=== PATIENT | male | born 1960 | race Caucasian/White ===

== ENCOUNTER 2017-06-10 19:31 | Emergency (ER) | payer OTHER ==
[~2017-06-10] VITALS: Ht 172.7 cm; Wt 70.8 kg
[2017-06-10 19:56] VITALS: Ht 172.7 cm; Wt 70.8 kg
[2017-06-11 03:16] VITALS: BP 132/93
== END 2017-06-11 03:16 | disposition home or self-care (01) ==
LOC: ED 19:31
DX: S01.431A Puncture wound without foreign body of right cheek and temporomandibular area, initial encounter (principal); F10.239 Alcohol dependence with withdrawal, unspecified; X58.XXXA Exposure to other specified factors, initial encounter; Y93.89 Activity, other specified; Y99.8 Other external cause status; Y92.89 Other specified places as the place of occurrence of the external cause
CPT/HCPCS: J2060

== ENCOUNTER 2017-06-11 11:10 | Inpatient (IN) | payer OTHER ==
[~2017-06-11] VITALS: Ht 172.7 cm; Wt 71.3 kg
[2017-06-11 07:30] VITALS: BP 140/91
[2017-06-11 11:23] VITALS: Ht 172.7 cm; Wt 71.3 kg
[2017-06-11 12:04] LABS: BASOPHIL % 0.3 % (0-2); PLATELET COUNT 151 x10^3mcL (130-400)
[2017-06-11 12:05] LABS: RED CELL DISTRIBUTION WIDTH 16.4 % (11.5-14.5)
[2017-06-11 12:18] LABS: CALCIUM 9.5 mg/dL (8.5-10.1); CARBON DIOXIDE 21.9 mmol/L (21-32); CHLORIDE SERUM 93 mmol/L (98-107); CREATININE SERUM 0.9 mg/dL (0.7-1.3); GFR1 > 60 mL/min; GLUCOSE SERUM 136 mg/dL (74-106); POTASSIUM SERUM 3.6 mmol/L (3.5-5.1); SODIUM SERUM 130 mmol/L (136-145)
[2017-06-11 12:22] LABS: ALBUMIN 4.2 g/dL (3.4-5.0); ALKALINE PHOSPHATASE 87 U/L (46-116); ALT/SGPT 74 U/L (16-63); AST/SGOT 94 U/L (15-37); BILIRUBIN TOTAL 2.14 mg/dL (0.20-1.00)
[2017-06-11 12:23] LABS: TOTAL PROTEIN, SERUM 8.8 g/dL (6.4-8.2)
[2017-06-11 16:04] VITALS: BP 172/116
[2017-06-11 16:20] LABS: MAGNESIUM 1.8 mg/dL (1.8-2.4); PHOSPHOROUS 3.1 mg/dL (2.5-4.9)
[2017-06-11 16:22] LABS: CHOLESTEROL/HDL RATIO 3.3
[2017-06-11 16:43] LABS: FREE T4 1.02 ng/dL (0.76-1.46); FREE THYROXINE INDEX 2.8 ug/dL (1.4-4.5); T4(THYROXINE) 7.9 ug/dL (4.7-13.3)
[2017-06-11 17:05] LABS: T3 TOTAL 1.73 ng/mL
[2017-06-11 17:10] VITALS: BP 182/119
[2017-06-11 17:30] VITALS: BP 140/91
[2017-06-11 19:46] LABS: microscopic required? NO
[2017-06-11 20:00] LABS: UA SPECIFIC GRAVITY 1.015 (1.005-1.035); urine erythrocyte NEGATIVE (NEGATIVE)
[2017-06-11 20:20] LABS: AMPHETAMINE QUAL UR NONE DETECTED (NEG <=1000)
[2017-06-11 22:13] VITALS: BP 169/109
[2017-06-12 06:48] VITALS: BP 145/101
[2017-06-12 07:39] LABS: CALCIUM 9.5 mg/dL (8.5-10.1); CARBON DIOXIDE 17.4 mmol/L (21-32); CHLORIDE SERUM 97 mmol/L (98-107); CREATININE SERUM 0.9 mg/dL (0.7-1.3); GFR1 > 60 mL/min; GLUCOSE SERUM 114 mg/dL (74-106); SODIUM SERUM 135 mmol/L (136-145)
[2017-06-12 07:46] LABS: BASOPHIL % 0.3 % (0-2); PLATELET COUNT 179 x10^3mcL (130-400)
[2017-06-12 07:47] LABS: RED CELL DISTRIBUTION WIDTH 16.3 % (11.5-14.5)
[2017-06-12 08:00] LABS: IRON 131 ug/dL (65-170)
[2017-06-12 08:04] LABS: TOTAL IRON BINDING CAPACITY 460 ug/dL (250-450)
[2017-06-12 08:43] VITALS: BP 117/72
[2017-06-12 09:10] LABS: RED BLOOD CELLS 4.71 M/mm3 (4.52-5.90)
[2017-06-12 14:10] VITALS: BP 90/60
[2017-06-12 17:16] VITALS: BP 115/78
[2017-06-12 21:00] VITALS: BP 114/80
[2017-06-13 06:47] VITALS: BP 119/86
[2017-06-13 07:35] LABS: BASOPHIL % 0.5 % (0-2); PLATELET COUNT 143 x10^3mcL (130-400)
[2017-06-13 07:37] LABS: RED CELL DISTRIBUTION WIDTH 16.5 % (11.5-14.5)
[2017-06-13 08:39] LABS: CALCIUM 8.4 mg/dL (8.5-10.1); CARBON DIOXIDE 23.3 mmol/L (21-32); CHLORIDE SERUM 101 mmol/L (98-107); CREATININE SERUM 0.9 mg/dL (0.7-1.3); GFR1 > 60 mL/min; GLUCOSE SERUM 94 mg/dL (74-106); SODIUM SERUM 137 mmol/L (136-145)
[2017-06-13 09:20] VITALS: BP 141/99
[2017-06-13 12:22] VITALS: BP 118/82
[2017-06-13 18:25] VITALS: BP 103/77
[2017-06-13 21:15] VITALS: BP 108/84
[2017-06-14 05:33] VITALS: BP 145/98
[2017-06-14 07:47] LABS: CALCIUM 8.5 mg/dL (8.5-10.1); CARBON DIOXIDE 20.8 mmol/L (21-32); CHLORIDE SERUM 101 mmol/L (98-107); CREATININE SERUM 0.7 mg/dL (0.7-1.3); GFR1 > 60 mL/min; GLUCOSE SERUM 90 mg/dL (74-106); SODIUM SERUM 135 mmol/L (136-145)
[2017-06-14 08:00] LABS: POTASSIUM SERUM 2.9 mmol/L (3.5-5.1)
[2017-06-14 08:44] LABS: BASOPHIL % 0.5 % (0-2); PLATELET COUNT 143 x10^3mcL (130-400)
[2017-06-14 08:45] LABS: RED CELL DISTRIBUTION WIDTH 16.6 % (11.5-14.5)
[2017-06-14 09:40] VITALS: BP 87/68
[2017-06-14 14:24] VITALS: BP 111/81
[2017-06-14 18:19] VITALS: BP 118/85
[2017-06-14 21:01] VITALS: BP 144/94
[2017-06-15 05:13] VITALS: BP 136/96
[2017-06-15 07:00] LABS: BASOPHIL % 0.8 % (0-2); PLATELET COUNT 164 x10^3mcL (130-400)
[2017-06-15 07:01] LABS: RED CELL DISTRIBUTION WIDTH 17.1 % (11.5-14.5)
[2017-06-15 07:17] LABS: CALCIUM 8.8 mg/dL (8.5-10.1); CARBON DIOXIDE 22.2 mmol/L (21-32); CHLORIDE SERUM 101 mmol/L (98-107); CREATININE SERUM 0.7 mg/dL (0.7-1.3); GFR1 > 60 mL/min; GLUCOSE SERUM 104 mg/dL (74-106); POTASSIUM SERUM 3.3 mmol/L (3.5-5.1); SODIUM SERUM 135 mmol/L (136-145)
[2017-06-15 09:21] VITALS: BP 109/63
[2017-06-15 17:45] VITALS: BP 131/96
[2017-06-15 21:43] VITALS: BP 134/95
[2017-06-16 05:42] VITALS: BP 144/96
[2017-06-16 07:44] LABS: BASOPHIL % 0.9 % (0-2); PLATELET COUNT 212 x10^3mcL (130-400)
[2017-06-16 08:16] LABS: RED CELL DISTRIBUTION WIDTH 17.1 % (11.5-14.5)
[2017-06-16 08:21] LABS: CALCIUM 8.5 mg/dL (8.5-10.1); CHLORIDE SERUM 101 mmol/L (98-107); CREATININE SERUM 0.9 mg/dL (0.7-1.3); GFR1 > 60 mL/min; GLUCOSE SERUM 100 mg/dL (74-106); POTASSIUM SERUM 3.2 mmol/L (3.5-5.1); SODIUM SERUM 137 mmol/L (136-145)
[2017-06-16 09:56] VITALS: BP 110/80; BP 124/70
[2017-06-16 17:09] VITALS: BP 105/74
[2017-06-16 19:30] VITALS: BP 147/97
[2017-06-16 21:24] VITALS: BP 110/84; BP 156/101
[2017-06-17 05:55] VITALS: BP 159/95
[2017-06-17 06:18] LABS: PLATELET COUNT 174 x10^3mcL (130-400)
[2017-06-17 06:32] LABS: BASOPHIL % 2.7 % (0-2); RED CELL DISTRIBUTION WIDTH 16.2 % (11.5-14.5)
[2017-06-17 06:37] LABS: CALCIUM 8.8 mg/dL (8.5-10.1); CARBON DIOXIDE 25.2 mmol/L (21-32); CHLORIDE SERUM 101 mmol/L (98-107); CREATININE SERUM 0.8 mg/dL (0.7-1.3); GFR1 > 60 mL/min; GLUCOSE SERUM 105 mg/dL (74-106); POTASSIUM SERUM 3.2 mmol/L (3.5-5.1); SODIUM SERUM 136 mmol/L (136-145)
[2017-06-17 09:02] VITALS: BP 118/76
[2017-06-17 16:35] VITALS: BP 117/89
[2017-06-17 19:30] VITALS: BP 103/76
[2017-06-17 22:06] VITALS: BP 137/89
[2017-06-18 06:23] VITALS: BP 130/92
[2017-06-18 07:25] LABS: CALCIUM 9.1 mg/dL (8.5-10.1); CARBON DIOXIDE 22.1 mmol/L (21-32); CHLORIDE SERUM 102 mmol/L (98-107); CREATININE SERUM 0.8 mg/dL (0.7-1.3); GFR1 > 60 mL/min; GLUCOSE SERUM 104 mg/dL (74-106); POTASSIUM SERUM 3.5 mmol/L (3.5-5.1); SODIUM SERUM 136 mmol/L (136-145)
[2017-06-18 07:32] LABS: BASOPHIL % 1.2 % (0-2); PLATELET COUNT 231 x10^3mcL (130-400)
[2017-06-18 07:35] LABS: RED CELL DISTRIBUTION WIDTH 16.5 % (11.5-14.5)
[2017-06-18 10:10] VITALS: BP 127/91
[2017-06-18 18:15] VITALS: BP 118/86
[2017-06-18 20:16] VITALS: BP 118/81
[2017-06-18 20:52] VITALS: BP 130/87
[2017-06-19 05:22] VITALS: BP 140/96
[2017-06-19 06:45] LABS: BASOPHIL % 1.2 % (0-2); PLATELET COUNT 214 x10^3mcL (130-400)
[2017-06-19 07:08] LABS: RED CELL DISTRIBUTION WIDTH 17.7 % (11.5-14.5)
[2017-06-19 07:13] LABS: CALCIUM 8.6 mg/dL (8.5-10.1); CARBON DIOXIDE 22.6 mmol/L (21-32); CHLORIDE SERUM 103 mmol/L (98-107); CREATININE SERUM 0.8 mg/dL (0.7-1.3); GFR1 > 60 mL/min; GLUCOSE SERUM 107 mg/dL (74-106); POTASSIUM SERUM 3.2 mmol/L (3.5-5.1); SODIUM SERUM 138 mmol/L (136-145)
[2017-06-19 10:42] VITALS: BP 93/65
[2017-06-19] MEDS ORDERED: LIB10 PO (13:31)
[2017-06-19] MEDS ORDERED: NATURE'S BLEND F1 MG PO (13:33)
[2017-06-19] MEDS ORDERED: THE PO (13:33)
[2017-06-19] MEDS ORDERED: THI100 PO (13:33)
[2017-06-19] MEDS ORDERED: LIPI10 PO (13:34)
[2017-06-19 15:15] VITALS: BP 93/65
== END 2017-06-19 15:50 | disposition home or self-care (01) | DRG 897 ==
LOC: ED 11:10 → DU 13:54 → MU 06-15 07:46
PROVIDERS: Emergency Medicine; Family Medicine
DX: F10.231 Alcohol dependence with withdrawal delirium (principal); I67.4 Hypertensive encephalopathy; E87.1 Hypo-osmolality and hyponatremia; E87.3 Alkalosis; T51.0X1A Toxic effect of ethanol, accidental (unintentional), initial encounter; G25.2 Other specified forms of tremor; R06.4 Hyperventilation; E87.6 Hypokalemia; R73.03 Prediabetes; R74.0 Nonspecific elevation of levels of transaminase and lactic acid dehydrogenase [LDH]; I10 Essential (primary) hypertension; D64.9 Anemia, unspecified; E03.9 Hypothyroidism, unspecified; E78.5 Hyperlipidemia, unspecified; Z68.23 Body mass index [BMI] 23.0-23.9, adult; Z91.19 Patient's noncompliance with other medical treatment and regimen; Y90.0 Blood alcohol level of less than 20 mg/100 ml; Y92.009 Unspecified place in unspecified non-institutional (private) residence as the place of occurrence of the external cause
CPT/HCPCS: 36600; 83880; 84439; 97110-GP; 97116-GP; 97530-GP; G0480; J0360; J1200; J2060; J3480; J7030; Q0092